=== PATIENT | female | born 1965 | race Caucasian/White ===

== ENCOUNTER → 2018-08-31 08:38 | Outpatient (CLI) | payer MEDICAID | END | disposition home or self-care (01) | LOC: D.RAD 08:38 | DX: R12 Heartburn (principal); R11.2 Nausea with vomiting, unspecified; K58.9 Irritable bowel syndrome, unspecified ==

== ENCOUNTER → 2018-09-03 10:47 | Outpatient (CLI) | payer MEDICAID | END | disposition home or self-care (01) | LOC: D.NM 10:47 | PROVIDERS: ATTEND Internal Medicine Gastroenterology | DX: R12 Heartburn (principal); R11.2 Nausea with vomiting, unspecified; K58.9 Irritable bowel syndrome, unspecified ==